=== PATIENT | male | born 1985 | race Caucasian/White ===

== ENCOUNTER 2017-03-19 23:21 | Emergency (ER) | payer MEDICAID ==
[~2017-03-19] VITALS: Ht 185.4 cm; Wt 108.2 kg
[~2017-03-19 23:21] MED LIST: ALBU18HF2 IH; CIPR7.5D2 LEFT EAR; CLA10T PO; DIPH25CA83 PO; IBUP-1984 PO; PRED50TA PO
[2017-03-20] MEDS ORDERED: IBUP-1985 PO (00:29)
[2017-03-20] MEDS ORDERED: dexamethasone 4mg tablet PO ONE (00:30)
[2017-03-20 00:38] VITALS: BP 138/102
== END 2017-03-20 00:38 | disposition home or self-care (01) ==
LOC: ER 23:22
DX: J02.9 Acute pharyngitis, unspecified (principal)
CPT/HCPCS: 99282; J8540

== ENCOUNTER 2017-11-04 17:54 | Emergency (ER) | payer MEDICAID ==
[~2017-11-04] VITALS: Ht 185.4 cm; Wt 109.1 kg
[~2017-11-04 17:54] MED LIST changes: +IBUP-1985 PO
[2017-11-04] MEDS ORDERED: ALBU8HFA PO (18:39)
[2017-11-04] MEDS ORDERED: DOXY100C43 PO (18:39)
[2017-11-04] MEDS ORDERED: PRED5TAB PO (18:39)
[2017-11-04] MEDS ORDERED: ALB0.5UD IH (18:56)
[2017-11-04] MEDS ORDERED: dexamethasone 4mg tablet PO ONE (19:00)
[2017-11-04 19:11] VITALS: BP 164/83
== END 2017-11-04 19:12 | disposition home or self-care (01) ==
LOC: ER 17:55
DX: J20.9 Acute bronchitis, unspecified (principal); J98.8 Other specified respiratory disorders; I10 Essential (primary) hypertension; J02.9 Acute pharyngitis, unspecified
CPT/HCPCS: 71045; 99283; J8540

== ENCOUNTER 2023-05-12 09:44 | Emergency (ER) | payer MEDICAID ==
[~2023-05-12] VITALS: Ht 185.4 cm; Wt 111.1 kg
[~2023-05-12 09:44] MED LIST changes: +PRED5TAB PO
[2023-05-12 09:47] VITALS: TEMP 98
[2023-05-12 11:11] LABS: BASOPHILS # (AUTO) 0.1 X10'3 (0-0.2); BASOPHILS % (AUTO) 1.3 % (0-1); EOSINOPHILS # (AUTO) 0.3 X10'3 (0-0.9); EOSINOPHILS % (AUTO) 3.8 % (0-6); HEMATOCRIT 48.7 % (42.0-52.0); HEMOGLOBIN 16.2 g/dl (14.0-17.9); LYMPHOCYTES # (AUTO) 1.6 X10'3 (1.1-4.8); LYMPHOCYTES % (AUTO) 24.2 % (21-51); MEAN CORPUSCULAR HEMOGLOBIN 29.3 PG (27.0-31.0); MEAN CORPUSCULAR HGB CONC 33.2 g/dL (33.0-36.5); MEAN CORPUSCULAR VOLUME 88.3 FL (78-98); MONOCYTES # (AUTO) 0.6 X10'3 (0-0.9); NEUTROPHILS # (AUTO) 4.1 X10'3 (1.8-7.7); NEUTROPHILS % (AUTO) 61.7 % (42-75); PLATELET COUNT 331 X10'3 (140-440); RED BLOOD COUNT 5.52 X10'6 (4.70-6.10); RED CELL DISTRIBUTION WIDTH 12.4 % (11.5-14.5); WHITE BLOOD COUNT 6.6 X10'3 (4.5-11.0)
[2023-05-12 11:26] LABS: ALBUMIN 3.6 G/DL (3.4-5.0); ANION GAP 10 (8-16); BLOOD UREA NITROGEN 11 MG/DL (7-18); BUN/CREATININE RATIO 11.1 (10.0-20.0); CALCIUM 8.7 MG/DL (8.5-10.1); CHLORIDE 105 MMOL/L (99-107); CREATININE 0.99 MG/DL (0.60-1.10); GLUCOSE 80 MG/DL (70-104); POTASSIUM 4.2 MMOL/L (3.5-5.1); SODIUM 140 MMOL/L (135-145); TOTAL CARBON DIOXIDE 25.1 MMOL/L (24-32); eCRCL 117 ML/MIN; eGFR 86 ML/MIN
[2023-05-12] MEDS ORDERED: HYDR-3965 PO (13:03)
[2023-05-12 13:23] VITALS: BP 118/80; PULSE 85; RESP 16; O2SAT 100
== END 2023-05-12 13:24 | disposition home or self-care (01) ==
LOC: ER 09:45
DX: S29.8XXA Other specified injuries of thorax, initial encounter (principal); Z72.89 Other problems related to lifestyle; Z79.52 Long term (current) use of systemic steroids; Z79.1 Long term (current) use of non-steroidal anti-inflammatories (NSAID); Z79.2 Long term (current) use of antibiotics; Z79.899 Other long term (current) drug therapy; W19.XXXA Unspecified fall, initial encounter; Y93.89 Activity, other specified; Y92.89 Other specified places as the place of occurrence of the external cause; Y99.8 Other external cause status
CPT/HCPCS: 36415; 71045; 80048; 84484; 85025; 93005; 99285